=== PATIENT | female | born 2000 | race Caucasian/White ===

== ENCOUNTER 2022-10-11 19:55 | Emergency (ER) | payer OTHER ==
[2022-10-11 19:59] VITALS: BP 107/72; PULSE 74; RESP 18; TEMP 98.5; BMI 36.2
[2022-10-11 23:06] LABS: INR 0.99 (0.83-1.09); PROTHROMBIN TIME (PATIENT) 11.4 SEC (9.7-13.0)
[2022-10-11 23:10] LABS: BASO % 0.8 % (0-2.0); EOS % 2.1 % (0-4.5); HEMATOCRIT 42.3 % (32.4-45.2); HEMOGLOBIN 13.8 GM/dL (10.7-15.3); MCH 28.6 pg (25.7-33.7); MCHC 32.7 g/dl (32.0-36.0); MEAN CELL VOLUME 87.5 fl (80-96); MEAN PLT VOLUME 10.4 fl (7.5-11.1); MONO % 9.9 % (3.8-10.2); NEUT % 53.2 % (42.8-82.8); PLATELET COUNT 316 10^3/uL (134-434); RBC 4.84 M/mm3 (3.60-5.2); RDW 13.2 % (11.6-15.6); WHITE BLOOD COUNT 8.1 K/mm3 (4.0-10.0)
[2022-10-11 23:14] LABS: ALBUMIN 3.4 g/dl (3.4-5.0); BLOOD UREA NITROGEN 9.3 mg/dL (7-18); CALCIUM 9.3 mg/dL (8.5-10.1)
[2022-10-11 23:17] LABS: CREATININE 0.6 mg/dL (0.55-1.3)
[2022-10-11 23:22] LABS: TOT PROT 7.4 g/dl (6.4-8.2)
[2022-10-11 23:40] LABS: BILIRUBIN,TOTAL 0.3 mg/dL (0.2-1)
== END 2022-10-11 23:46 | disposition home or self-care (01) ==
LOC: JER 19:55
DX: R10.84 Generalized abdominal pain (principal); R19.7 Diarrhea, unspecified
CPT/HCPCS: 36415; 80053; 85025; 85610; 99283-25

== ENCOUNTER 2023-07-26 19:14 | Emergency (ER) | payer OTHER ==
[2023-07-26 19:25] VITALS: BP 119/72; PULSE 76; RESP 18; TEMP 98; BMI 33.8
[2023-07-26] MEDS ORDERED: ACETAMINOPHEN 325 MG TABLET (FP) PO ONE (19:54)
[2023-07-26] MEDS ORDERED: ACETAMINOPHEN 325 MG TABLET (FP) ONE (20:10)
[2023-07-26 20:23] LABS: EOS % 2.2 % (0-4.5); LYMPH % 31.9 % (8-40); MCH 30.5 pg (25.7-33.7); MCHC 34.9 g/dl (32.0-36.0); MEAN CELL VOLUME 87.4 fl (80-96); MEAN PLT VOLUME 10.8 fl (7.5-11.1); MONO % 10.7 % (3.8-10.2); NEUT % 54.2 % (42.8-82.8); PLATELET COUNT 246 10^3/uL (134-434); RBC 4.58 M/mm3 (3.60-5.2); WHITE BLOOD COUNT 8.4 K/mm3 (4.0-10.0)
[2023-07-26 20:24] LABS: EPI CELLS 17 /uL (0-25.1); HYALINE CASTS 0 /uL (0-3.1); PH,URINE 5.5 (5.0-8.0); URINE APPEARANCE CLEAR; URINE BACTERIA 140 /uL (0-1359); URINE BILIRUBIN NEGATIVE (NEGATIVE); URINE COLOR YELLOW; URINE GLUCOSE (UA) NEGATIVE (NEGATIVE); URINE KETONE NEGATIVE (NEGATIVE); URINE LEUK ESTERASE NEGATIVE (NEGATIVE); URINE NITRITE NEGATIVE (NEGATIVE); URINE PROTEIN NEGATIVE (NEGATIVE); URINE RBC 42 /uL (0-23.9); URINE UROBILINOGEN 0.2 mg/dL (0.2-1.0); URINE WBC 14 /uL (0-25.8)
[2023-07-26 20:29] LABS: INR 0.97 (0.83-1.09); PROTHROMBIN TIME (PATIENT) 11.3 SEC (9.7-13.0)
[2023-07-26 20:32] LABS: ACTIVATED PTT 31.3 SECONDS (25.2-36.5)
[2023-07-26 20:43] LABS: CHLORIDE 106 mmol/L (98-107); POTASSIUM 3.8 mmol/L (3.5-5.1); SODIUM 139 mmol/L (136-145)
[2023-07-26 20:46] LABS: ALBUMIN 3.6 g/dl (3.4-5.0); ANION GAP 6 MMOL/L (8-16); BLOOD UREA NITROGEN 8.4 mg/dL (7-18); CALCIUM 9.1 mg/dL (8.5-10.1); CO2 27 mmol/L (21-32); GLUCOSE,RANDOM 91 mg/dL (74-106)
[2023-07-26 20:49] LABS: SGOT/AST 19 U/L (15-37); SGPT/ALT 41 U/L (13-61)
[2023-07-26 20:50] LABS: CREATININE 0.7 mg/dL (0.55-1.3)
[2023-07-26 20:51] LABS: BILIRUBIN,TOTAL 0.2 mg/dL (0.2-1); TOT PROT 7.6 g/dl (6.4-8.2)
[2023-07-26 20:52] LABS: ALK PHOS 50 U/L (45-117)
[2023-07-26 21:34] LABS: HCG,QUALITATIVE URINE Negative
== END 2023-07-27 01:24 | disposition home or self-care (01) ==
LOC: JER 19:14
DX: O20.9 Hemorrhage in early pregnancy, unspecified (principal); O26.899 Other specified pregnancy related conditions, unspecified trimester; R10.30 Lower abdominal pain, unspecified; R11.0 Nausea; Z3A.00 Weeks of gestation of pregnancy not specified
CPT/HCPCS: 36415; 76830-TC; 80053; 81003; 84702; 84703; 85025; 85610; 85730; 99284-25

== ENCOUNTER 2023-12-12 20:06 | Emergency (ER) | payer OTHER ==
[2023-12-12 20:16] VITALS: BMI 32.5
[2023-12-12 22:07] LABS: BASO % 0.4 % (0-2.0); EOS % 0.7 % (0-4.5); HEMATOCRIT 39.3 % (32.4-45.2); HEMOGLOBIN 13.7 GM/dL (10.7-15.3); LYMPH % 26.1 % (8-40); MCH 30.8 pg (25.7-33.7); MEAN CELL VOLUME 88.2 fl (80-96); MEAN PLT VOLUME 9.3 fl (7.5-11.1); MONO % 8.5 % (3.8-10.2); NEUT % 64.3 % (42.8-82.8); PLATELET COUNT 237 10^3/uL (134-434); RBC 4.46 M/mm3 (3.60-5.2); RDW 12.7 % (11.6-15.6); WHITE BLOOD COUNT 10.6 K/mm3 (4.0-10.0)
[2023-12-12 22:23] LABS: POTASSIUM 4.1 mmol/L (3.5-5.1)
[2023-12-12 22:25] LABS: ALBUMIN 3.7 g/dl (3.4-5.0); CALCIUM 9.1 mg/dL (8.5-10.1); MAGNESIUM 1.8 mg/dL (1.8-2.4)
[2023-12-12 22:29] LABS: CREATININE 0.6 mg/dL (0.55-1.3)
[2023-12-12 22:30] LABS: BILIRUBIN,TOTAL 0.4 mg/dL (0.2-1); TOT PROT 7.6 g/dl (6.4-8.2)
[2023-12-12] MEDS: SODIUM CHLORIDE 0.9% 500 ML INFUS.BAG IV ONE (22:58)
[2023-12-12 23:50] LABS: PH,URINE 5.5 (5.0-8.0); URINE APPEARANCE CLEAR; URINE BILIRUBIN NEGATIVE (NEGATIVE); URINE COLOR YELLOW; URINE GLUCOSE (UA) NEGATIVE (NEGATIVE); URINE KETONE TRACE (NEGATIVE); URINE LEUK ESTERASE NEGATIVE (NEGATIVE); URINE NITRITE NEGATIVE (NEGATIVE); URINE PROTEIN NEGATIVE (NEGATIVE); URINE UROBILINOGEN 0.2 mg/dL (0.2-1.0)
[2023-12-13 01:41] VITALS: RESP 18; TEMP 98.5
[2023-12-13] MEDS ORDERED: ONDANSETRON *ODT* 4 MG TABLET ONE (02:25)
[2023-12-13] MEDS: ONDANSETRON *ODT* 4 MG TABLET SL ONE (02:28)
[2023-12-13 02:34] VITALS: BP 114/66; PULSE 87
== END 2023-12-13 02:34 | disposition home or self-care (01) ==
LOC: JER 20:06
DX: O26.891 Other specified pregnancy related conditions, first trimester (principal); R42 Dizziness and giddiness; R11.0 Nausea; R00.2 Palpitations; R25.1 Tremor, unspecified; R53.1 Weakness; Z3A.01 Less than 8 weeks gestation of pregnancy
CPT/HCPCS: 36415; 76817-TC; 80053; 81003; 83735; 84443; 84702; 85025; 86850; 86900; 86901; 87086; 93005; 93010; 99285-25; Q0162

== ENCOUNTER 2024-04-16 14:32 | Emergency (ER) | payer OTHER ==
[2024-04-16 14:49] VITALS: BP 119/68; PULSE 97; RESP 16; TEMP 98.5; BMI 34.7
[2024-04-16] MEDS ORDERED: ACETAMINOPHEN 500 MG TABLET (FP) ONE (15:43)
[2024-04-16] MEDS: ACETAMINOPHEN 500 MG TABLET (FP) PO ONE (15:45)
[2024-04-16 16:08] LABS: BASO % 0.5 % (0-2.0); EOS % 0.7 % (0-4.5); HEMOGLOBIN 11.7 GM/dL (10.7-15.3); LYMPH % 15.8 % (8-40); MCH 29.2 pg (25.7-33.7); MCHC 33.4 g/dl (32.0-36.0); MEAN CELL VOLUME 87.4 fl (80-96); MEAN PLT VOLUME 9.1 fl (7.5-11.1); MONO % 9.6 % (3.8-10.2); NEUT % 73.4 % (42.8-82.8); PLATELET COUNT 213 10^3/uL (134-434); RBC 4.01 M/mm3 (3.60-5.2); RDW 12.6 % (11.6-15.6); WHITE BLOOD COUNT 12.3 K/mm3 (4.0-10.0)
[2024-04-16 16:09] LABS: URINE APPEARANCE CLEAR; URINE BILIRUBIN NEGATIVE (NEGATIVE); URINE COLOR YELLOW; URINE GLUCOSE (UA) NEGATIVE (NEGATIVE); URINE KETONE NEGATIVE (NEGATIVE); URINE LEUK ESTERASE NEGATIVE (NEGATIVE); URINE NITRITE NEGATIVE (NEGATIVE); URINE PROTEIN NEGATIVE (NEGATIVE); URINE UROBILINOGEN 0.2 mg/dL (0.2-1.0)
[2024-04-16 16:29] LABS: CALCIUM 8.6 mg/dL (8.5-10.1)
[2024-04-16 16:30] LABS: ALBUMIN 2.8 g/dl (3.4-5.0)
[2024-04-16 16:33] LABS: CREATININE 0.5 mg/dL (0.55-1.3)
[2024-04-16 16:34] LABS: BILIRUBIN,TOTAL 0.2 mg/dL (0.2-1); TOT PROT 6.6 g/dl (6.4-8.2)
[2024-04-16] MEDS ORDERED: BACITRACIN ZINC 15 GM TUBE TOPICAL OINTMENT ONE (19:29)
== END 2024-04-16 20:42 | disposition home or self-care (01) ==
LOC: JER 14:32
DX: O26.892 Other specified pregnancy related conditions, second trimester (principal); R10.31 Right lower quadrant pain; R11.0 Nausea; Z3A.25 25 weeks gestation of pregnancy
CPT/HCPCS: 36415; 74181-TC; 80053; 81003; 85025; 87086; 99284-25